=== PATIENT | female | born 1995 | race Two or more races ===

== ENCOUNTER 2024-05-22 20:39 | Emergency (ER) | payer MEDICAID, SELFPAY ==
[2024-05-22 20:39] VITALS: BMI 33.6
[2024-05-22 20:48] VITALS: BP 144/86; PULSE 84; RESP 18; TEMP 36.8; O2SAT 100
--- NOTE | 2024-05-22 20:48 | PD.EDABDPN ---
ED Abdominal Pain RME/HPI General Chief Complaint: Abdominal Pain Stated complaint: ABD PAIN, N/V/D Time seen by provider: 05/22/24 20:42 Arrival date/time: 05/22/24 20:39 RME / HPI RME / HPI narrative: This section includes all my notes and documentations, including HPI, PE, and ED course. Derek Nelson MD HPI: 28yo female with a history of gallstones presents to the ED for a chief complaint of mid lower abdominal pain. Patient states she's had intermittent lower abdominal pain for the last 1 month, reporting it's been progressively getting worse. She reports associated nausea. She denies any vomiting, fever, chills or any other associated symptoms. She denies any possibility of being . No PSH. PCP is [facility]. No other complaints reported. ROS: All negative except as documented in HPI. Physical Exam: General: Alert and oriented. No acute distress when remaining still. Eyes: Conjunctivae and lids clear. ENT: No nasal congestion. Neck: Supple. Heart: RRR. Lungs: No respiratory distress. Good air movement. No rhonchi, wheezing, rales. Abdomen: Soft and nontender. Legs: No clubbing, cyanosis, edema. Skin: Warm and dry. Neuro: Alert and oriented X 3. I reviewed all diagnostic test results. My review of the gallbladder US report is cholelithiasis. My review of the abdominal CT report is colitis. Blood tests and urine tests unremarkable. At this point, diagnoses include colitis and cholelithiasis. Recommended a trial of outpatient treatment. Based on my best medical judgment, made decision no further evaluation or treatment indicated at this time. Patient understands and agrees to the discharge instructions customized and printed, see below. Discharge Instructions from Dr. Nelson: 1. After evaluation, you had gallstones. You need gallbladder to help digest fatty foods. Your gallbladder doesn't need to be taken out emergently. So to prevent future attack, avoid all fatty and oily and greasy and buttery and dairy foods. This usually means take out and fast food restaurants. 3. The CT scan shows you have colitis, infection and inflammation of your colon. Take Cipro and Flagyl to kill the germs causing the infection. Zofran for nausea/vomiting. Tylenol codeine for severe pain. Clear liquid diet for 24 hours then advance slowly as tolerated. 4. See a private doctor on 05/25/2024 for recheck and further care. Ask to review all test results and official radiology reports, to make sure you receive all necessary follow-ups and monitoring. To make sure there is no serious intra-abdominal condition, ask for help with more investigation not available here in the ER. Such as EGD or scoping the stomach, colonoscopy or scoping the colon, and referral to see mine superintendent. Ask for a referral to see a general surgeon to discuss elective removal of your gallbladder. 5. Seek immediate medical care with intolerable pain, fever, or with any concerns. Derek Nelson MD Related Data Home Medications ?Medication ?Instructions ?Recorded ?Confirmed omeprazole 40 mg capsule,delayed 40 mg PO QDAY 02/08/18 02/09/18 release Previous Rx's ?Medication ?Instructions ?Recorded acetaminophen 500 mg tablet 500 mg PO QID PRN pain #20 tabs 02/08/18 aluminum-mag hydroxide-simethicone 10 ml PO TID PRN indigestion #360 02/08/18 400 mg-400 mg-40 mg/5 mL oral susp mL (Maalox Maximum Strength) ibuprofen 800 mg tablet 800 mg PO Q8H PRN pain #30 tabs 02/02/21 acetaminophen 300 mg-codeine 30 mg 2 tab PO TID PRN pain #20 tabs 05/23/24 tablet ciprofloxacin HCl 500 mg tablet 500 mg PO BID #20 tabs 05/23/24 (Cipro) metronidazole 500 mg tablet 500 mg PO BID 10 days #20 tabs 05/23/24 ondansetron 4 mg disintegrating 4 mg PO TID PRN nausea and 05/23/24 tablet vomiting 5 days #10 tabs Allergies Allergy/AdvReac Type Severity Reaction Status Date / Time Penicillins Allergy Severe Anaphylaxis Verified 02/02/21 03:10 Review of Systems Review of Systems Systems Reviewed: All systems reviewed, normal except as documented Past Medical History Past Medical History NEUROLOGIC: Negative Neurological Disorders CARDIAC: Negative Cardiac Disorders or Congestive Heart Failure RESPIRATORY: Negative Chronic Obstructive Pulmonary Disease (COPD) or Asthma GASTROINTESTINAL: Positive Gastroesophageal Reflux Disease and Obesity; Negative Gastrointestinal Disorders, Hepatitis, Cirrhosis, Pancreatitis, Celiac Disease, Gall Bladder Disease, Gastrointestinal Bleed, Esophageal Varices, Iraheta's Esophagus, Colitis, Ulcerative Colitis, Diverticulitis, Diverticulosis, Ulcer, Irritable Bowel, Crohn's Disease, Obstructive Bowel, Hiatal Hernia or Hemorrhoids GENITOURINARY: Negative Genitourinary Disorders or Renal Disease REPRODUCTIVE: Negative Pelvic Inflammatory Disease MUSCULOSKELETAL: Negative Musculoskeletal Disorders or Carpal Tunnel Syndrome ENDOCRINE: Positive Endocrine Disorders and Hypothyroidism; Negative Diabetes Mellitus Type 1, Diabetes Mellitus Type 2, Hypoglycemia, [place]'s Syndrome, [place]'s Disease, Hyperthyroidism, Parathyroid Disease, Pituitary Disease, Systemic Lupus Erythematosus, Syndrome of Inappropriate Antidiuretic Hormone (SIADH), Adrenal Disease or Graves' Disease HEMATOLOGIC: Positive Blood Disorders and Anemia; Negative Leukemia, Hemophilia, Thalassemia, Sickle Cell Disease or Clotting Problems OTHER HISTORY: Negative Hospitalization, Autoimmune Disease, Down Syndrome, Developmental Delay, Shingles, Falls, Blood Transfusions, Blood Transfusion Reaction, Anesthesia Reactions, Organ Transplant, Chemotherapy, Radiation Therapy, Hyperbaric Therapy, MRSA, VRSA, Vancomycin-Resistant Enterococci, Human Immunodeficiency Virus (HIV), Chicken Pox, Measles, Mumps, Rubella (Macedonian Measles), Pertussis, Clostridium Difficile or Cancer Family History FAMILY HISTORY: Negative Family Neurologic Problems, Family Psychiatric Problems, Family Respiratory Disorders, Family Cardiac Disorders, Family Gastrointestinal Problems, Family Cancer, Family Surgery or Family Anesthesia Reaction Surgical History SURGICAL: Negative Cardiac Surgery, Endocrine Surgery, Abdominal Surgery, Nephrectomy, Joint Replacement, Amputation, Open Reduction Internal Fixation, Arthroscopy, Neurologic Surgery, Mastectomy, Lumpectomy, Hysterectomy, Tubal Ligation, Section or Organ Transplant Social History SMOKING STATUS: Never smoker SECOND HAND EXPOSURE: Yes SUBSTANCE USE: does not use ED Exam Narrative Physical exam: As noted in HPI. Course Quality Measures none Orders Category Date Time Status CT abdomen pelvis wo con Stat Exams 05/22/24 20:50 Completed US gall bladder Stat Exams 05/22/24 20:50 Completed Amylase Stat Lab 05/22/24 21:15 Completed BMP [Basic Metabolic Panel] Stat Lab 05/22/24 21:15 Completed CBC Stat Lab 05/22/24 21:15 Completed HCG Qualitative,Urine Stat Lab 05/22/24 21:17 Completed HCG,Qualitative Serum Stat Lab 05/22/24 21:15 Completed Lipase Stat Lab 05/22/24 21:15 Completed Liver Panel Stat Lab 05/22/24 21:15 Completed Magnesium Stat Lab 05/22/24 21:15 Completed UA, C/S IF [Urinalysis, C/S if Indicated] Stat Lab 05/22/24 21:17 Completed Vital Signs Vital signs: Vital Signs Temperature 98.2 F 05/22/24 20:48 Pulse Rate 84 05/22/24 20:48 Respiratory Rate 18 05/22/24 20:48 Blood Pressure 144/86 H 05/22/24 20:48 Pulse Oximetry (%) 100 05/22/24 20:48 Oxygen Delivery Method Room Air 05/22/24 20:48 Abdominal Pain MDM MDM Narrative MDM Narrative:: Scribe Attestation: 05/22/24 Verito Michelle am scribing for and in the presence of Dr. Nelson. Patient data External records reviewed:: [facility] previous records (Per chart review, patient was seen here on 02/09/18 for epigastric pain.) Clinical information provided by:: patient Social determinants that could affect healthcare access:: none Patient has the following chronic illnesses:: gallstones How is presenting disease/condition affected by chronic disease/condition?: caused by Evaluation data The following diagnostics were reviewed and interpreted by me:: lab results and radiology exam(s) Lab and/or radiology exams considered but not ordered:: none Interpretation Summary: Cholelithiasis and colitis Medications / Prescriptions Medications or Prescriptions considered but not ordered:: none Medication administrations:: none Consultations Consultation(s) initiated? (list below): No Diagnosis Differential diagnosis abdominal pain: acute appendicitis, calculus of kidney, constipation, diverticulitis, endometriosis, gastroenteritis, pancreatitis and small bowel obstruction Most likely diagnosis given after review of the tests above:: Colitis, Gallstones Admission Indicated Admission indicated?: not indicated Explain why admission is indicated or not indicated:: No criteria for admission. Admission Request Was there a request for admission?: No Disposition Plan Disposition Plan: Discharge Discharge Attestation Discharge Attestation: The patient and all family members were given an opportunity to ask questions and understood the discharge instructions. Discharge instructions specifically effects, indications for sooner follow up or return to the emergency department, and the expected course of current diagnosis. Patient condition: Stable Discharge Plan Plan Patient Disposition: HOME (Self Care) Prescriptions/Referrals Prescriptions/Med Rec: New metronidazole 500 mg tablet 500 mg PO BID 10 Days Qty: 20 0RF acetaminophen-codeine 300-30 mg tablet 2 tab PO TID MDD 6 PRN (Reason: pain) Qty: 20 0RF ciprofloxacin HCl [Cipro] 500 mg tablet 500 mg PO BID Qty: 20 0RF ondansetron 4 mg tablet,disintegrating 4 mg PO TID PRN (Reason: nausea and vomiting) 5 Days Qty: 10 0RF No Action omeprazole 40 mg Capsule,Delayed Release(Dr/Ec) 40 mg PO QDAY alum-mag hydroxide-simeth [Maalox Maximum Strength] 400-400-40 mg/5 mL suspension 10 ml PO TID PRN (Reason: indigestion) Qty: 360 0RF Rx Instructions: administer between meals acetaminophen 500 mg tablet 500 mg PO QID PRN (Reason: pain) Qty: 20 0RF ibuprofen 800 mg tablet 800 mg PO Q8H PRN (Reason: pain) Qty: 30 0RF Problem List Clinical Impression: Colitis, Gallstone Patient/Caregiver Discharge Instructions Discharge Activity: activity as tolerated Education Materials: ED Gallstones with Biliary Colic, ED Ulcerative Colitis Additional Instructions: Discharge Instructions from Dr. Nelson: 1. After evaluation, you had gallstones.? You need gallbladder to help digest fatty foods. Your gallbladder doesn't need to be taken out emergently. So to prevent future attack, avoid all fatty and oily and greasy and buttery and dairy foods.? This usually means take out and fast food restaurants. 3. The CT scan shows you have colitis, infection and inflammation of your colon. Take Cipro and Flagyl to kill the germs causing the infection. Zofran for nausea/vomiting.? Tylenol codeine for severe pain.? Clear liquid diet for 24 hours then advance slowly as tolerated. 4. See a private doctor on 05/25/2024 for recheck and further care. Ask to review all test results and official radiology reports, to make sure you receive all necessary follow-ups and monitoring. To make sure there is no serious intra-abdominal condition, ask for help with more investigation not available here in the ER. Such as EGD or scoping the stomach, colonoscopy or scoping the colon, and referral to see mine superintendent. Ask for a referral to see a general surgeon to discuss elective removal of your gallbladder. 5. Seek immediate medical care with intolerable pain, fever, or with any concerns. Print Language: Macedonian Stand Alone Forms: Delisa Award Info., Work/School Release, Patient Portal Info Letter
--- NOTE | 2024-05-22 20:50 | XR_ITS ---
Examination: CT abdomen and pelvis without contrast. Coronal 3-D reconstructions. Sagittal 2-D reconstructions. Date and time of exam:May 22, 2024 1108 hrs. Indications: Intermittent abdominal pain nausea vomiting beginning one month ago CTDI: vol (mGy): 11.41 DLP: (mGycm): 548 Technique: Axial images of the abdomen have been obtained, 3 mm slice thickness Intravenous contrast material has not been administered. Low dose protocols were performed. One or more of the following dose reduction techniques were used; automated exposure control, adjustment of the mA and/or KV according to patient size, use of iterative reconstruction technique. Findings: No focal liver or splenic lesions No gallstones No pancreatic or adrenal mass No renal or ureteral calculi, no hydronephrosis Aorta normal size No bowel obstruction Normal appendix No diverticulitis Mild diffuse wall thickening involving the colon No pelvic mass Urinary bladder intact Impression: No renal or ureteral calculi, no hydronephrosis Normal appendix Mild diffuse nonspecific colitis pattern
--- NOTE | 2024-05-22 20:50 | XR_ITS ---
Examination: Abdomen sonogram, Limited Date and time of exam: May 22, 2024 1042 hrs. Indications: Right upper abdominal pain beginning 2 days ago Technique: Real-time hutchins scale transabdominal sonographic images of the upper abdomen obtained. Findings: Cholelithiasis, negative for cholecystitis Common bile duct 0.3 cm Pancreatic head 2.1 cm Liver 15.5 cm no focal liver lesions Normal hepatopedal portal venous flow Patent IVC Impression: Cholelithiasis, negative for cholecystitis
[2024-05-22 21:54] LABS: Collection Type, Urine Clean Catch
[2024-05-22 21:59] LABS: Basophils % (Auto) 1 % (0-2.5); Eosinophils # (Auto) 0.9 Thou/mm3 (0.0-0.5); Eosinophils % (Auto) 14 % (0-10); Hematocrit 36.8 % (36.0-46.0); Hemoglobin 12.1 g/dL (12.0-16.0); Immature Granulocytes % (Auto) 0 % (0-0); Immature Granulocytes Auto 0.02 Thou/mm3 (0.00-0.00); Lymphocytes # (Auto) 1.9 Thou/mm3 (1.0-4.8); Lymphocytes % (Auto) 29 % (10-50); Mean Corpuscular HGB Conc 32.9 g/dl (31.0-37.0); Mean Corpuscular Hemoglobin 28.3 pg (25.0-35.0); Mean Corpuscular Volume 86 fL (80-100); Monocytes # (Auto) 0.5 Thou/mm3 (0.0-0.8); Monocytes % (Auto) 8 % (0-12); Neutrophils # (Auto) 3.1 Thou/mm3 (1.8-7.7); Neutrophils % (Auto) 48 % (37-80); Nucleated Red Blood Cell % 0 /100 WBC (0); Platelet Count 252 Thou/mm3 (140-440); RDW Standard Deviation 38.6 fL (36.4-46.3); Red Blood Count 4.27 Miln/mm3 (4.00-5.20); White Blood Count 6.4 Thou/mm3 (3.6-11.0)
[2024-05-22 22:09] LABS: HCG Qualitative,Urine Negative
[2024-05-22 22:11] LABS: Bilirubin,Urine Negative (Negative); Blood,Urine Negative (Negative); Clarity,Urine Clear (Clear/Hazy); Color,Urine Yellow (Lt Yel-Yel); Culture Indicated,Urine Not Indicated; Glucose, Urine Negative (Negative); Ketones,Urine Negative (Negative); Leukocyte Esterase,Urine Negative (Negative); Nitrite,Urine Negative (Negative); Protein,Urine Negative (Neg - Trace); RBC,Urine 2 /hpf (0-3); Squamous Epithelial Cell,Urine 6 /hpf (0-5); Urobilinogen,Urine Negative mg/dL (0.0-1.0); WBC,Urine 3 /hpf (0-5)
[2024-05-22 22:20] LABS: HCG,Qualitative Serum Negative
[2024-05-22 22:48] LABS: Alanine Aminotransferase 23 U/L (10-49); Albumin, Serum 4.3 gm/dL (3.5-5.0); Alkaline Phosphatase 62 U/L (46-116); Anion Gap 7 (7-16); Aspartate Amino Transferase 12 U/L (0-34); BUN/Creatinine Ratio 23 Ratio (12-20); Bilirubin,Direct < 0.1 mg/dL (0.0-0.3); Bilirubin,Total 0.2 mg/dL (0.3-1.2); Blood Urea Nitrogen 16 mg/dL (9-23); Calcium 9.8 mg/dL (8.3-10.6); Carbon Dioxide 23.3 mMol/L (20.0-31.0); Chloride 111 mMol/L (98-107); Creatinine (Component) 0.7 mg/dL (0.6-1.3); Estimated Creatinine Clearance 123.4 mL/min (>60); Glucose 104 mg/dL (74-106); Lipase 62 U/L (12-53); Magnesium 1.6 mg/dL (1.6-2.6); Osmolality,Calculated 282 (275-295); Sodium 141 mMol/L (136-145); Total Protein 7.5 gm/dL (5.7-8.2); eGFR > 60 See Note
[2024-05-22 23:00] LABS: Amylase 80 U/L (30-118)
== END 2024-05-23 05:53 | disposition home or self-care (01) ==
LOC: SERX 05-23 02:13
PROVIDERS: Emergency Provider Emergency Medicine
DX: K52.9 Noninfective gastroenteritis and colitis, unspecified (principal); K80.20 Calculus of gallbladder without cholecystitis without obstruction
CPT/HCPCS: 36415; 74176; 76705; 80048; 80076; 81001; 81025; 82150; 83690; 83735; 84703; 85025; 99284

== ENCOUNTER 2024-06-13 21:05 | Emergency (ER) | payer MEDICAID, SELFPAY ==
[2024-06-13 21:06] VITALS: BMI 31.6
--- NOTE | 2024-06-13 21:47 | EDNOTE_ITS ---
ED Abdominal Pain RME/HPI General Chief Complaint: Abdominal Pain Stated complaint: ABD PAIN, N/V/D Time seen by provider: 06/13/24 21:09 Arrival date/time: 06/13/24 21:05 Related Data Home Medications ?Medication ?Instructions ?Recorded ?Confirmed omeprazole 40 mg capsule,delayed 40 mg PO QDAY 8 02/09/18 release Previous Rx's ?Medication ?Instructions ?Recorded acetaminophen 500 mg tablet 500 mg PO QID PRN pain #20 tabs 02/08/18 aluminum-mag hydroxide-simethicone 10 ml PO TID PRN in digestion #360 02/08/18 400 mg-400 mg-40 mg/5 mL oral susp mL (Maalox Maximum Strength) ibuprofen 800 mg tablet 800 mg PO Q8H PRN pain #30 t abs 02/02/21 acetaminophen 300 mg-codeine 30 mg 2 tab PO TID PRN pa in #20 tabs 05/23/24 tablet ciprofloxacin HCl 500 mg tablet 500 mg PO BID #20 tabs 05/23/24 (Cipro) Allergies Allergy/AdvReac Type Severity Reaction Status Date / Time Penicillins Allergy Severe Anaphylaxis Verified 06/13/24 21:06 Course Orders Category Date Time Status EKG (ED ONLY) *Do not use* NOW Care 06/13/24 21:52 Completed Saline [Insert IV] NOW Care 06/13/24 21:[address] abdomen pelvis wo con Stat Exams 06/13/24 21:52 Ordered EKG (ED Only) Stat Exams 06/13/24 21:52 Draft US gall bladder Stat Exams 06/13/24 21:52 Ordered Amylase Stat Lab 06/13/24 22:08 Received Bilirubin,Direct Stat Lab 06/13/24 22:08 Received CBC Stat Lab 06/13/24 22:08 Completed CMP [Comprehensive Metabolic Panel] Stat Lab 06/13/24 22:08 Received Drug Screen,Urine Stat Lab 06/13/24 22:02 Completed HCG Qualitative,Urine Stat Lab 06/13/24 22:02 Results Lipase Stat Lab 06/13/24 22:08 Received Magnesium Stat Lab 06/13/24 22:08 Received TSH [Thyroid Stimulating Hormone] Stat Lab 06/13/24 22:08 Received Troponin I Stat Lab 06/13/24 22:08 Received UA, C/S IF [Urinalysis, C/S if Indicated] Stat Lab 06/13/24 22:02 Results Ketorolac Inj [Toradol Inj] Med 06/13/24 21:51 Discontinued 30 mg IVP X1 ONE Morphine Inj Med 06/13/24 21:51 Discontinued 4 mg IVP X1 ONE Ondansetron Inj [Zofran Inj] Med 06/13/24 21:51 Discontinued 4 mg IV X1 ONE Sodium Chloride 0.9% 1000 ml [Ns] 1,000 ml Med 06/13/24 21:51 Active IV 999 mls/hr Vital Signs Vital signs: Vital Signs Temperature 98 F 06/13/24 21:51 Pulse Rate 140 H 06/13/24 21:51 Respiratory Rate 19 06/13/24 21:51 Blood Pressure 108/85 H 06/13/24 21:51 Pulse Oximetry (%) 97 06/13/24 21:51 Oxygen Delivery Method Room Air 06/13/24 21:51 Abdominal Pain MDM MDM Narrative MDM Narrative:: My interpretation of the EKG is: Sinus tachycardia (107 bpm) with nonspecific ST-T changes. Derek Nelson MD Medications / Prescriptions Medication administrations:: Medication Administration History Sodium Chloride (Ns) 1,000 mls @ 999 mls/hr IV .Q1H1M ONE Stop: 06/13/24 22:51 Last Admin: 06/13/24 22:05 Dose: 999 mls/hr Documented By: GLYNN Discontinued Medications Ketorolac Tromethamine (Ketorolac Inj 30 Mg/Ml Vial) 30 mg IVP X1 ONE Stop: 06/13/24 21:52 Last Admin: 06/13/24 22:05 Dose: 30 mg Documented By: GLYNN Morphine Sulfate (Morphine Sulf Inj 10 Mg/Ml Vial) 4 mg IVP X1 ONE Stop: 06/13/24 21:52 Last Admin: 06/13/24 22:05 Dose: 4 mg Documented By: GLYNN Ondansetron HCl (Ondansetron Inj 2 Mg/Ml Inj 2 Ml) 4 mg IV X1 ONE; Protocol Stop: 06/13/24 21:52 Last Admin: 06/13/24 22:07 Dose: 4 mg Documented By: GLYNN Discharge Plan Prescriptions/Referrals Prescriptions/Med Rec: No Action omeprazole 40 mg Capsule,Delayed Release(Dr/Ec) 40 mg PO QDAY alum-mag hydroxide-simeth [Maalox Maximum Strength] 400-400-40 mg/5 mL suspension 10 ml PO TID PRN (Reason: indigestion) Qty: 360 0RF Rx Instructions: administer between meals acetaminophen 500 mg tablet 500 mg PO QID PRN (Reason: pain) Qty: 20 0RF ibuprofen 800 mg tablet 800 mg PO Q8H PRN (Reason: pain) Qty: 30 0RF acetaminophen-codeine 300-30 mg tablet 2 tab PO TID MDD 6 PRN (Reason: pain) Qty: 20 0RF ciprofloxacin HCl [Cipro] 500 mg tablet 500 mg PO BID Qty: 20 0RF Patient/Caregiver Discharge Instructions Print Language: Solomon Islander
[2024-06-13 21:51] VITALS: BP 108/85; PULSE 140; RESP 19; TEMP 36.6; O2SAT 97
--- NOTE | 2024-06-13 21:52 | EKG_ITS ---
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
--- NOTE | 2024-06-13 21:52 | XR_ITS ---
Examination: Abdomen sonogram, Limited Date and time of exam: June 13, 2024 1112 hrs. Indications: Right upper abdominal pain beginning 2 months ago Technique: Real-time hutchins scale transabdominal sonographic images of the upper abdomen obtained. Findings: Cholelithiasis, negative for cholecystitis Common bile duct 0.3 cm Pancreatic head 2.0 cm Liver 15.1 cm fatty infiltration Normal hepatopedal portal venous flow Patent IVC Impression: Cholelithiasis, negative for cholecystitis
[2024-06-13] MEDS: SODIUM CHLORIDE 0.9% 1000 ML 1,000 ML 999 ML IV (22:05)
[2024-06-13] MEDS: MORPHINE SULF INJ 10 MG/ML VIAL 4 MG IVP (22:05)
[2024-06-13] MEDS: KETOROLAC INJ 30 MG/ML VIAL IVP (22:05)
[2024-06-13] MEDS: ONDANSETRON INJ 2 MG/ML INJ 2 ML 4 MG IV (22:07)
[2024-06-13 22:15] LABS: Collection Type, Urine Clean Catch
[2024-06-13 22:19] LABS: Basophils # (Auto) 0.1 Thou/mm3 (0.0-0.2); Basophils % (Auto) 1 % (0-2.5); Eosinophils % (Auto) 16 % (0-10); Hematocrit 38.2 % (36.0-46.0); Hemoglobin 12.4 g/dL (12.0-16.0); Immature Granulocytes % (Auto) 1 % (0-0); Immature Granulocytes Auto 0.06 Thou/mm3 (0.00-0.00); Lymphocytes # (Auto) 3.2 Thou/mm3 (1.0-4.8); Lymphocytes % (Auto) 27 % (10-50); Mean Corpuscular HGB Conc 32.5 g/dl (31.0-37.0); Mean Corpuscular Hemoglobin 27.7 pg (25.0-35.0); Mean Corpuscular Volume 85 fL (80-100); Monocytes # (Auto) 1.1 Thou/mm3 (0.0-0.8); Monocytes % (Auto) 9 % (0-12); Neutrophils # (Auto) 5.7 Thou/mm3 (1.8-7.7); Neutrophils % (Auto) 47 % (37-80); Nucleated Red Blood Cell % 0 /100 WBC (0); Platelet Count 429 Thou/mm3 (140-440); RDW Standard Deviation 38.5 fL (36.4-46.3); Red Blood Count 4.48 Miln/mm3 (4.00-5.20); White Blood Count 12.1 Thou/mm3 (3.6-11.0)
[2024-06-13 22:20] LABS: Bilirubin,Urine 1+ (Negative); Blood,Urine Negative (Negative); Clarity,Urine Clear (Clear/Hazy); Color,Urine Yellow (Lt Yel-Yel); Culture Indicated,Urine Not Indicated; Glucose, Urine Negative (Negative); Hyaline Casts,Urine < 1 /hpf (0-1); Ketones,Urine 4+ (Negative); Leukocyte Esterase,Urine Negative (Negative); Nitrite,Urine Negative (Negative); Protein,Urine 2+ (Neg - Trace); RBC,Urine 2 /hpf (0-3); Specific Gravity,Urine 1.035 (1.001-1.035); Squamous Epithelial Cell,Urine 8 /hpf (0-5); WBC,Urine 2 /hpf (0-5)
[2024-06-13 22:27] LABS: Amphetamine/Methamp Scrn,U Negative (Negative); Barbiturate Screen,Urine Negative (Negative); Benzodiazepines Screen,Urine Negative (Negative); Benzoylecgonine Screen, Ur Negative (Negative); Fentanyl Screen,Urine Negative (Negative); Opiate Screen,Urine Negative (Negative); THC Screen,Urine Negative (Negative)
[2024-06-13 22:37] LABS: HCG Qualitative,Urine Negative
--- NOTE | 2024-06-13 22:38 | XR_ITS ---
Examination: CT abdomen with intravenous contrast CT pelvis with intravenous contrast 2-D coronal reconstructions 2-D sagittal reconstructions Date and time of exam:June 13, 2024 at 11:00 PM Indications: Abdominal pain blood in the stool beginning 2 months ago. CTDI: vol (mGy) 9.9 DLP: (mGycm) 573 Technique: Multiple axial sections of the abdomen and pelvis have been obtained. 64 slice high-resolution scanner used. 3 mm axial sections have been obtained, post intravenous injection 100 cc Isovue-370 2-D sagittal, coronal reconstructions obtained. Low dose protocols were performed. One or more of the following dose reduction techniques were used; automated exposure control, adjustment of the mA and/or KV according to patient size, use of iterative reconstruction technique. Findings: No focal liver or splenic lesion No pancreatic or adrenal mass No renal or ureteral calculi, no hydronephrosis Aorta normal size Normal appendix Mild diffuse wall thickening involving the colon and rectum 14 mm left ovarian follicular cyst Bladder intact Impression: Diffuse nonspecific colitis pattern, differential would include ulcerative colitis, Crohn's disease
--- NOTE | 2024-06-13 22:39 | XR_ITS ---
Examination: CTA chest with intravenous contrast 2-D reconstructions 3-D reconstructions, vascular Date and time of exam: June 14, 2019 5:11 PM Indications: Chest pain shortness of breath beginning 2 days ago CTDI: vol (mGy) 10.6 DLP: (mGycm) 389 Technique: Multiple axial sections of the thorax have been obtained. 3 mm slice thickness, from below the hemidiaphragms to above the apices of the lungs. Mediastinal and lung density settings have been obtained. 2-D sagittal and coronal reconstructions. 3-D angiographic renderings, 3-D volume renderings, 3D post processing, vascular maximum intensity projections obtained. Contrast administered is 100 cc Isovue-370. Low dose protocols were performed. One or more of the following dose reduction techniques were used; automated exposure control, adjustment of the mA and/or KV according to patient size, use of iterative reconstruction technique. Findings: No thoracic aortic aneurysm dilatation No pulmonary artery filling defects No paratracheal tracheobronchial or bronchopulmonary adenopathy No pneumonia or pulmonary edema or pleural disease No liver or splenic lesion No gallstones No pancreatic or adrenal mass Impression: Negative for pulmonary artery emboli No pneumonia, pulmonary edema or pleural disease
[2024-06-13 23:20] LABS: Alanine Aminotransferase 16 U/L (10-49); Albumin, Serum 4.1 gm/dL (3.5-5.0); Albumin/Globulin Ratio 1.3 (1.2-2.2); Alkaline Phosphatase 71 U/L (46-116); Amylase 28 U/L (30-118); Anion Gap 14 (7-16); Aspartate Amino Transferase 15 U/L (0-34); BUN/Creatinine Ratio 14 Ratio (12-20); Bilirubin,Direct < 0.1 mg/dL (0.0-0.3); Bilirubin,Total 0.2 mg/dL (0.3-1.2); Blood Urea Nitrogen 11 mg/dL (9-23); Calcium 9.3 mg/dL (8.3-10.6); Calcium (Corrected) 9.3 mg/dL (8.5-10.1); Carbon Dioxide 17.6 mMol/L (20.0-31.0); Chloride 108 mMol/L (98-107); Creatinine (Component) 0.8 mg/dL (0.6-1.3); Estimated Creatinine Clearance 104.7 mL/min (>60); Globulin 3.2 gm/dL (2.3-3.5); Glucose 86 mg/dL (74-106); Lipase 26 U/L (12-53); Magnesium 1.7 mg/dL (1.6-2.6); Osmolality,Calculated 277 (275-295); Potassium 3.5 mMol/L (3.4-5.1); Sodium 140 mMol/L (136-145); Thyroid Stimulating Hormone 1.63 uIU/mL (0.55-4.78); Total Protein 7.3 gm/dL (5.7-8.2); Troponin I < 0.020 ng/mL (0.0-0.045); eGFR > 60 See Note
[2024-06-14 00:46] VITALS: BP 94/60; PULSE 85; RESP 17; TEMP 36.6; O2SAT 98
[2024-06-14 01:47] VITALS: BP 95/63; PULSE 77; RESP 16; TEMP 36.6; O2SAT 98
[2024-06-14 03:27] VITALS: BP 100/62; PULSE 82; RESP 16; TEMP 36.7; O2SAT 98
== END 2024-06-14 03:28 | disposition home or self-care (01) ==
PROVIDERS: Emergency Provider Emergency Medicine; PCP Family Medicine
DX: R10.9 Unspecified abdominal pain (principal); R00.0 Tachycardia, unspecified
CPT/HCPCS: 36415; 71275; 74177; 76705; 80053; 80307; 81001; 81025; 82150; 82248; 83690; 83735; 84443; 84484; 85025; 93005; 96361; 96374; 96375; 99285; A4649; J1885; J2270; J2405; J7030; Q9967

== ENCOUNTER 2024-06-30 19:57 | Emergency (ER) | payer MEDICAID, SELFPAY ==
[2024-06-30 19:57] VITALS: BMI 29.5
[2024-06-30 20:17] VITALS: BP 130/78; PULSE 89; RESP 18; TEMP 37.6; O2SAT 99
--- NOTE | 2024-06-30 20:23 | XR_ITS ---
Examination: Venous duplex lower extremity sonogram, bilateral. Date and time of exam: June 30, 2024 2031 hours INDICATIONS: Bilateral leg pain post cholecystectomy 2 weeks ago Technique: Multiple sonographic images of the deep venous system have been obtained. B-mode/2-D grayscale imaging of vascular structures and Doppler spectral analysis (waveforms) and color performed Both legs are examined. Findings: Deep venous systems do not demonstrate abnormal echogenicity. All visualized deep veins exhibit compressibility. All visualized deep veins exhibit augmentation. Impression: Negative for deep vein thrombosis
--- NOTE | 2024-06-30 20:29 | PD.EDEXREM ---
ED Extremity Problem RME/HPI General Chief complaint: Extremity Problem,Nontraumatic Stated complaint: Post op surgery problems Time Seen by Provider: 06/30/24 20:22 Arrival date/time: 06/30/24 19:57 29F with history of recent cholecystectomy presents to ED with 2 days of BLE swelling. Patient denies SOB and fall/trauma. Limitations: no limitations Related Data Home Medications ?Medication ?Instructions ?Recorded ?Confirmed omeprazole 40 mg capsule,delayed 40 mg PO QDAY 02/08/18 02/09/18 release Previous Rx's ?Medication ?Instructions ?Recorded acetaminophen 500 mg tablet 500 mg PO QID PRN pain #20 tabs 02/08/18 aluminum-mag hydroxide-simethicone 10 ml PO TID PRN indigestion #360 02/08/18 400 mg-400 mg-40 mg/5 mL oral susp mL (Maalox Maximum Strength) ibuprofen 800 mg tablet 800 mg PO Q8H PRN pain #30 tabs 02/02/21 acetaminophen 300 mg-codeine 30 mg 2 tab PO TID PRN pain #20 tabs 05/23/24 tablet ciprofloxacin HCl 500 mg tablet 500 mg PO BID #20 tabs 05/23/24 (Cipro) acetaminophen 300 mg-codeine 30 mg 2 tab PO Q8H PRN pain #20 tabs 06/14/24 tablet amoxicillin 875 mg-potassium 1 tab PO BID #20 tabs 06/14/24 clavulanate 125 mg tablet ondansetron 4 mg disintegrating 4 mg PO TID PRN nausea and 06/14/24 tablet vomiting 30 days #10 tabs Allergies Allergy/AdvReac Type Severity Reaction Status Date / Time Penicillins Allergy Severe Anaphylaxis Verified 06/13/24 21:06 Review of Systems Review of Systems Systems Reviewed: All systems reviewed, normal except as documented Constitutional Constitutional: Reports system reviewed and no additional complaints, except as documented, Denies fever(s) and Denies headache(s) ENT Ears, Nose, Mouth, and Throat: Denies disequilibrium and Denies headache(s) Cardiovascular Cardiovascular: Reports system reviewed and no additional complaints, except as documented, Denies chest pain and Denies dyspnea Respiratory Respiratory: Reports system reviewed and no additional complaints, except as documented, Denies cough and Denies dyspnea Gastrointestinal Gastrointestinal: Reports system reviewed and no additional complaints, except as documented, Denies abdominal pain, Denies nausea and Denies vomiting Integumentary/Breasts Skin/Breast: Reports as per HPI and Reports skin swelling Neurologic Neurologic: Reports system reviewed and no additional complaints, except as documented, Denies confusion, Denies disequilibrium and Denies headache(s) Psychiatric Psychiatric: Denies confusion Past Medical History Past Medical History NEUROLOGIC: Negative Neurological Disorders CARDIAC: Negative Cardiac Disorders or Congestive Heart Failure RESPIRATORY: Negative Chronic Obstructive Pulmonary Disease (COPD) or Asthma GASTROINTESTINAL: Positive Gastroesophageal Reflux Disease and Obesity; Negative Gastrointestinal Disorders, Hepatitis, Cirrhosis, Pancreatitis, Celiac Disease, Gall Bladder Disease, Gastrointestinal Bleed, Esophageal Varices, Iraheta's Esophagus, Colitis, Ulcerative Colitis, Diverticulitis, Diverticulosis, Ulcer, Irritable Bowel, Crohn's Disease, Obstructive Bowel, Hiatal Hernia or Hemorrhoids GENITOURINARY: Negative Genitourinary Disorders or Renal Disease REPRODUCTIVE: Negative Pelvic Inflammatory Disease MUSCULOSKELETAL: Negative Musculoskeletal Disorders or Carpal Tunnel Syndrome ENDOCRINE: Positive Endocrine Disorders and Hypothyroidism; Negative Diabetes Mellitus Type 1, Diabetes Mellitus Type 2, Hypoglycemia, Lockhart's Syndrome, Byron's Disease, Hyperthyroidism, Parathyroid Disease, Pituitary Disease, Systemic Lupus Erythematosus, Syndrome of Inappropriate Antidiuretic Hormone (SIADH), Adrenal Disease or Graves' Disease HEMATOLOGIC: Positive Blood Disorders and Anemia; Negative Leukemia, Hemophilia, Thalassemia, Sickle Cell Disease or Clotting Problems OTHER HISTORY: Negative Hospitalization, Autoimmune Disease, Down Syndrome, Developmental Delay, Shingles, Falls, Blood Transfusions, Blood Transfusion Reaction, Anesthesia Reactions, Organ Transplant, Chemotherapy, Radiation Therapy, Hyperbaric Therapy, MRSA, VRSA, Vancomycin-Resistant Enterococci, Human Immunodeficiency Virus (HIV), Chicken Pox, Measles, Mumps, Rubella (Bhutanese Measles), Pertussis, Clostridium Difficile or Cancer Family History FAMILY HISTORY: Negative Family Neurologic Problems, Family Psychiatric Problems, Family Respiratory Disorders, Family Cardiac Disorders, Family Gastrointestinal Problems, Family Cancer, Family Surgery or Family Anesthesia Reaction Surgical History SURGICAL: Negative Cardiac Surgery, Endocrine Surgery, Abdominal Surgery, Nephrectomy, Joint Replacement, Amputation, Open Reduction Internal Fixation, Arthroscopy, Neurologic Surgery, Mastectomy, Lumpectomy, Hysterectomy, Tubal Ligation, Section or Organ Transplant Social History SMOKING STATUS: Never smoker SECOND HAND EXPOSURE: Yes SUBSTANCE USE: does not use ED Exam General Limitations: Present no limitations General appearance: Present alert and in no apparent distress Head Head exam: Present atraumatic Eye Eye exam: Present normal appearance, PERRL and EOMI ENT ENT exam: Present normal exam, normal oropharynx and mucous membranes moist Neck Neck exam: Present normal inspection, full ROM and trachea midline Chest Chest inspection: Present normal inspection and symmetric chest wall rise Respiratory Respiratory exam: Present normal lung sounds bilaterally Cardiovascular Cardiovascular exam: Present regular rate, normal rhythm and normal heart sounds Abdominal Exam Abdominal exam: Present soft and normal bowel sounds Extremities Exam Extremities exam: Present full ROM Expanded Lower Extremity Exam Lower leg exam: Present full ROM and swelling Ankle exam: Present full ROM and swelling Foot/toe exam: Present full ROM and swelling Back Exam Back exam: Present normal inspection and full ROM Neurological Exam Neurological exam: Present alert, oriented X3 and CN II-XII intact Psychiatric Psychiatric exam: Present normal affect and normal mood Skin Skin exam: Present warm, dry, intact and normal color Course Quality Measures none Orders Category Date Time Status US venous doppler LE BI Stat Exams 06/30/24 20:23 Completed Vital Signs Vital signs: Vital Signs Temperature 99.7 F 06/30/24 20:17 Pulse Rate 89 06/30/24 20:17 Respiratory Rate 18 06/30/24 20:17 Blood Pressure 130/78 06/30/24 20:17 Pulse Oximetry (%) 99 06/30/24 20:17 Oxygen Delivery Method Room Air 06/30/24 20:17 O2 at 99% on RA and WNLs Extremity Problem MDM Narrative MDM Narrative:: 29F with history of recent cholecystectomy presents to ED with 2 days of BLE swelling. Patient denies SOB and fall/trauma. Physical exam reveals some BLE swelling, but no redness or tenderness. Skin warm. Gait normal. Normal WOB. Patient is afebrile, calm, and alert. US no DVT. Swelling likely due to gravity and postsurgical healing. Patient data External records reviewed:: [facility] previous records Clinical information provided by:: patient Social determinants that could affect healthcare access:: none Patient has the following chronic illnesses:: none How is presenting disease/condition affected by chronic disease/condition?: no chronic disease Evaluation data The following diagnostics were reviewed and interpreted by me:: radiology exam(s) Lab and/or radiology exams considered but not ordered:: ordered Interpretation Summary: above Medications / Prescriptions Medications or Prescriptions considered but not ordered:: not ordered Medication administrations:: n/a Consultations Consultation(s) initiated? (list below): No Diagnosis Extremity Problem Differential Diagnosis: herpes zoster, gout, cellulitis, superficial thrombophlebitis, deep venous thrombosis of upper extremity, lower extremity edema, deep vein thrombosis of lower extremity and other (skin swelling) Most likely diagnosis given after review of the tests above:: skin swelling Admission Indicated Admission indicated?: not indicated Admission Request Was there a request for admission?: No Disposition Plan Disposition Plan: Discharge Discharge Attestation Discharge Attestation: The patient and all family members were given an opportunity to ask questions and understood the discharge instructions. Discharge instructions specifically effects, indications for sooner follow up or return to the emergency department, and the expected course of current diagnosis. Patient condition: Stable Discharge Plan Plan Patient Disposition: HOME (Self Care) Prescriptions/Referrals Prescriptions/Med Rec: No Action omeprazole 40 mg Capsule,Delayed Release(Dr/Ec) 40 mg PO QDAY alum-mag hydroxide-simeth [Maalox Maximum Strength] 400-400-40 mg/5 mL suspension 10 ml PO TID PRN (Reason: indigestion) Qty: 360 0RF Rx Instructions: administer between meals acetaminophen 500 mg tablet 500 mg PO QID PRN (Reason: pain) Qty: 20 0RF ibuprofen 800 mg tablet 800 mg PO Q8H PRN (Reason: pain) Qty: 30 0RF acetaminophen-codeine 300-30 mg tablet 2 tab PO Q8H MDD 6 PRN (Reason: pain) Qty: 20 0RF ondansetron 4 mg tablet,disintegrating 4 mg PO TID PRN (Reason: nausea and vomiting) 30 Days Qty: 10 0RF amoxicillin-pot clavulanate 875-125 mg tablet 1 tab PO BID Qty: 20 0RF acetaminophen-codeine 300-30 mg tablet 2 tab PO TID MDD 6 PRN (Reason: pain) Qty: 20 0RF ciprofloxacin HCl [Cipro] 500 mg tablet 500 mg PO BID Qty: 20 0RF Referrals: No Primary/Family,Physician [Primary Care Provider] - In 1 week Problem List Clinical Impression: Skin swelling Patient/Caregiver Discharge Instructions Additional Instructions: Please follow-up with PCP within 24-48 hours and return immediately if symptoms worsen. Print Language: Mongolian Stand Alone Forms: Patient Portal Info Letter ABDI/ARTURO Supervising Physician ABDI/ARTURO Supervising Physician: Dr. Nelson
== END 2024-06-30 21:59 | disposition home or self-care (01) ==
PROVIDERS: Emergency Provider Emergency Medicine
DX: M79.89 Other specified soft tissue disorders (principal); Z90.49 Acquired absence of other specified parts of digestive tract
CPT/HCPCS: 93970; 99284

== ENCOUNTER 2024-08-11 08:25 | Day surgery (SDC) | payer MEDICAID, SELFPAY ==
[2024-08-10 10:40] LABS: HCG Qualitative,Urine Negative
[2024-08-10 13:26] VITALS: BMI 31.8
[2024-08-11] VITALS (9 sets, daily range): BP systolic 102–131; BP diastolic 65–86; PULSE 64–109; RESP 12–19; TEMP 36.2; O2SAT 98–100; BMI 32.2
[2024-08-11] MEDS: MIDAZOLAM INJ 1 MG/ML VIAL 2 ML (ASD USE ONLY) 2 MG IV (10:09)
[2024-08-11] MEDS: RINGERS LACTATED 1000 ML 1,000 ML 125 ML IV (10:10)
[2024-08-11] MEDS: DiphenhydrAMINE INJ 50 MG/ML VIAL 25 MG IV (10:10)
[2024-08-11] MEDS: fentaNYL CIT INJ 50 mCg/ML AMP 2ML (ASD USE ONLY) IV (10:10)
== END 2024-08-11 10:40 | disposition home or self-care (01) ==
PROVIDERS: PCP Family Medicine; Referring Provider Internal Medicine Gastroenterology; Visit Provider Internal Medicine Gastroenterology
PROC: (CPT 43239; principal; 2024-08-11 09:00)
DX: K29.50 Unspecified chronic gastritis without bleeding (principal); K44.9 Diaphragmatic hernia without obstruction or gangrene
CPT/HCPCS: 43239; 81025; J1200; J2250; J3010; J7120

== ENCOUNTER 2024-08-13 09:50 | Day surgery (SDC) | payer MEDICAID, SELFPAY ==
[2024-08-12 10:51] LABS: HCG Qualitative,Urine Negative
[2024-08-12 14:38] VITALS: BMI 31.8
[2024-08-13] VITALS (13 sets, daily range): BP systolic 113–133; BP diastolic 77–102; PULSE 72–120; RESP 14–20; TEMP 36.3–36.4; O2SAT 98–100; BMI 31.5
[2024-08-13] MEDS: RINGERS LACTATED 1000 ML 1,000 ML 20 ML IV (11:09)
[2024-08-13] MEDS: DiphenhydrAMINE INJ 50 MG/ML VIAL 25 MG IV (11:12)
[2024-08-13] MEDS: fentaNYL CIT INJ 50 mCg/ML AMP 2ML (ASD USE ONLY) IV (11:22)
[2024-08-13] MEDS: MIDAZOLAM INJ 1 MG/ML VIAL 2 ML (ASD USE ONLY) 2 MG IV ×2 (11:22→11:38)
--- NOTE | 2024-08-13 12:41 | SUR.PHASEII ---
Discharge delayed. MD talked with patient and spouse.
== END 2024-08-13 12:35 | disposition home or self-care (01) ==
PROVIDERS: PCP Family Medicine; Referring Provider Internal Medicine Gastroenterology; Visit Provider Internal Medicine Gastroenterology
PROC: 0DBE8ZX Excision of Large Intestine, Via Natural or Artificial Opening Endoscopic, Diagnostic (ICD-10-PCS; CPT 45380; principal; 2024-08-13 09:15)
DX: K51.011 Ulcerative (chronic) pancolitis with rectal bleeding (principal); K64.9 Unspecified hemorrhoids
CPT/HCPCS: 45380; 81025; A4649; J1200; J2250; J3010; J7120